=== PATIENT | male | born 1990 | race Two or more races ===

== ENCOUNTER 2022-03-20 10:26 | Emergency (ER) | payer SELFPAY ==
[~2022-03-20] VITALS: Ht 185.4 cm; Wt 81.6 kg
--- NOTE | 2022-03-20 10:40 | NUR ---
To ER bed 13, [id number] was in the middle of the street, acting bizzare. [employer], connected to monitor, lapd at bedside, awaiting md orders
[2022-03-20] MEDS ORDERED: HALOPERIDOL LACTATE INJ 5 MG/ML VIAL ONE (10:46)
[2022-03-20] MEDS ORDERED: LORAZEPAM INJ 2 MG/ML VIAL ONE (10:46)
[2022-03-20] MEDS ORDERED: diphenhydrAMINE HCL 50 MG/ML VIAL ONE (10:46)
--- NOTE | 2022-03-20 10:48 | NUR ---
URINE COLLECTED AND SENT TO LAB
--- NOTE | 2022-03-20 10:55 | NUR ---
[employer] TECHNICIAN AT BEDSIDE FOR BLOOD DRAW
[2022-03-20] MEDS ORDERED: LORAZEPAM INJ 2 MG/ML VIAL IM ONE (11:00)
[2022-03-20] MEDS ORDERED: diphenhydrAMINE HCL 50 MG/ML VIAL IM ONE (11:00)
[2022-03-20] MEDS ORDERED: HALOPERIDOL LACTATE INJ 5 MG/ML VIAL IM ONE (11:00)
[2022-03-20 11:10] LABS: BASOPHILS % (AUTO) 0.2 % (0.0-2.0); EOSINOPHILS % (AUTO) 1.3 % (0.0-6.0); HEMATOCRIT 43 % (39-51); HEMOGLOBIN 14.6 g/dL (13.5-17.5); LYMPHOCYTES # (AUTO) 1.1 K/uL (0.8-4.8); LYMPHOCYTES % (AUTO) 11.3 % (20.0-44.0); MEAN CORPUSCULAR HGB CONC 34 g/dl (31.0-36.0); MEAN CORPUSCULAR VOLUME 91 fL (80-96); MONOCYTES # (AUTO) 0.9 K/uL (0.1-1.30); NEUTROPHILS # (AUTO) 7.7 K/uL (1.8-8.9); NEUTROPHILS % (AUTO) 78.2 % (43.0-81.0); PLATELET COUNT (AUTO) 378 K/uL (150-450); RED BLOOD CELL COUNT(AUTO) 4.73 MIL/uL (4.5-6.0); WHITE BLOOD COUNT (AUTO) 9.8 K/uL (4.3-11.0)
[2022-03-20 11:22] LABS: ALANINE AMINOTRANSFERASE 19 U/L (12-78); ALBUMIN 4.3 g/dL (3.4-5.0); ALCOHOL, BLOOD < 3 mg/dL (0-0); ALKALINE PHOSPHATASE 74 U/L (46-116); ASPARTATE AMINOTRANSFERASE 17 U/L (15-37); BILIRUBIN,DIRECT 0.3 mg/dL (0.0-0.2); CALCIUM, SERUM 9.4 mg/dL (8.5-10.1); CARBON DIOXIDE 26 mmol/L (21-32); CHLORIDE 103 mmol/L (98-107); CREATININE 1.1 mg/dL (0.6-1.3); GLUCOSE 72 mg/dL (74-106); POTASSIUM 3.4 mmol/L (3.5-5.1); SODIUM SERUM 138 mmol/L (136-145); TOTAL PROTEIN, SERUM 7.7 g/dL (6.4-8.2); UREA NITROGEN, BLOOD 23 mg/dL (7-18)
[2022-03-20 11:26] LABS: ACETAMINOPHEN 0 ug/ml (10-30)
--- NOTE | 2022-03-20 20:22 | NUR ---
PT SLEEPING IN BED, LETHARGIC. VSS
--- NOTE | 2022-03-20 22:45 | NUR ---
Patient discharged to home in stable condition. Written and verbal after care instructions given. Patient verbalizes understanding of instruction.
[2022-03-21 01:06] VITALS: BP 125/87
== END 2022-03-20 22:45 | disposition home or self-care (01) ==
LOC: ER 10:34
DX: F15.129 Other stimulant abuse with intoxication, unspecified (principal)
CPT/HCPCS: 99284; 96372 ×2; 85025; 80048; 80076; 36415; 82962; 80143; 80320; J2060; J1200; J1630; G0480

== ENCOUNTER 2022-03-31 16:54 | Emergency (ER) | payer MEDICAID ==
[~2022-03-31] VITALS: Ht 185.4 cm; Wt 81.2 kg
--- NOTE | 2022-04-01 00:16 | NUR ---
PATIENT IS A, OX3. AMBULATORY WITH STEADY GAITS. VSS. DENIED SI/HI. PO INTAKE TOLERATED WELL. MADE AWARE. PT IS STABLE FOR D/C.
[2022-04-01 00:46] VITALS: BP 128/66
--- NOTE | 2022-04-01 00:46 | NUR ---
Patient discharged to home in stable condition. Written and verbal after care instructions given. Patient verbalizes understanding of instruction.
== END 2022-04-01 00:47 | disposition home or self-care (01) ==
LOC: ER 16:54
DX: F19.90 Other psychoactive substance use, unspecified, uncomplicated (principal); Z60.2 Problems related to living alone
CPT/HCPCS: 82962-TC